=== PATIENT | female | born 1935 | race Caucasian/White ===

== ENCOUNTER 2019-05-23 10:25 | Observation (INO) ==
--- NOTE | 2019-05-23 11:08 | PROVIDER DOCUMENTATION ---
HPI-General Adult - General Chief Complaint: Nausea Stated Complaint: fall yesterday, nausea Time Seen by Provider: 05/23/19 10:56 Source: patient, family () Allergies/Adverse Reactions: Patient Allergies Allergy/AdvReac Type Severity Reaction Status Date / Time moxifloxacin HCl * Allergy Mild RASH Verified 12/27/15 18:14 [From Avelox] Home Medications: Home Medication List Medication Instructions Recorded Confirmed Last Taken Type Levothyroxine [Synthroid] 50 microgm PO DAILY 03/18/15 12/29/16 12/29/16 07:00 History Metoprolol Succinate [Toprol Xl] 50 mg PO DAILY 03/18/15 12/29/16 12/29/16 07:00 History Omeprazole 20 mg PO DAILY #30 capsule. 03/18/15 12/29/16 12/29/16 07:00 Rx Sucralfate [Carafate Liquid] 1 gm PO Q6HR #400 ml 03/18/15 12/29/16 Unknown Rx Acetaminophen [Tylenol] 650 mg PO Q4H PRN PRN #0 tablet 12/31/16 Unknown Rx Amoxicillin/Potassium Clav 1 each PO Q12H #14 tablet 12/31/16 Unknown Rx [Augmentin 875-125 Tablet] - History of Present Illness -Gen Adult Nature of Presenting Problems: Patient is an 83yo F who presents for nausea and weakness. Patient's is at bedside and reports patient slipped and fell yesterday in [facility] and hit her R arm. Reports she was seen by Dr. Aguero yesterday for arm pain who prescribed Tramadol after performing x-rays. Patient reports she has been "not feeling right" since starting the Tramadol. Patient reports she is unsure whether or not she hit her head, and reports he is unsure either as he was not with her. Patient's reports she got up this morning and attempted to go to the bathroom but was really weak and "her feet wouldn't move." Denies vomiting or abdominal pain. Patient's reports she takes a blood thinner, but is unsure of what kind. Upon examination, patient is pale in color and slow to respond to questions. Location of Pain/Injury: reports: upper extremity (R arm) Pain Radiation: reports: no radiation Quality of Pain: reports: aching Severity: reports: mild Onset/Duration: reports: 24 hours ago Timing: reports: still present Context/Activities at Onset: reports: none Modifying Factors: improves with: nothing Associated Symptoms: reports: arm pain, fatigue, genitourinary problems, nausea, weakness, trouble walking. denies: chest pain, cough, shortness of breath Similar Symptoms Previously?: No Recently seen or treated by another doctor?: Yes (saw Dr. Aguero for R arm yesterday) Review of Systems - Adult - REVIEW OF SYSTEMS - ADULT Constitutional: reports: see HPI, chills, fatique. denies: fever Eyes: reports: no symptoms reported Ears, Nose, Mouth & Throat: reports: no symptoms reported Cardiovascular: reports: no symptoms reported. denies: chest pain, palpitations Respiratory: reports: no symptoms reported. denies: cough, shortness of breath Gastrointestinal: reports: see HPI, nausea. denies: abdominal pain Genitourinary: reports: see HPI, hesitency Musculoskeletal: reports: see HPI Integumentary: reports: no symptoms reported Neurological: reports: see HPI Psychiatric: reports: no symptoms reported Endocrine: reports: no symptoms reported Past History - Adult - PAST MEDICAL HISTORY-ADULT Review of Records: reports: Nursing Assessment Review, Medications Reviewed Cardiovascular: reports: cardiac disease Obstetrical/Gynecological: reports: other (breast cancer) Endocrine/Immune: reports: thyroid disorder Other Conditions: reports: cataract/glaucoma - PRIOR SURGERIES/PROCEDURES Surgical/Procedure History: reports: cholecystectomy, hysterectomy, other (cataract, breast bx) - IMMUNIZATION STATUS Childhood Immunizations: See Nurse Assessment Flu Vaccine: See Nurse Assessment - FAMILY HISTORY Family History: reviewed, not pertinent - SOCIAL HISTORY Smoking: non-smoker Physical Exam-General - PHYSICAL EXAM-ADULT Initial Vital Signs Reviewed: Yes - CONSTITUTIONAL General Appearance: mild distress, slow to respond - EYES Eyes: PERRL/EOMI, pink conjunctivae. negative: EOM palsy, scleral icterus - HEAD, EARS, NOSE, MOUTH & THROAT HENMT: normocephalic/atraumatic, moist mucous membranes - NECK Neck: full range of motion, supple, normal inspection - RESPIRATORY Respiratory: chest non-tender, lungs clear, normal breath sounds, no pleuratic chest pain, no respiratory distress, no accessory muscle use. negative: crackles, rales, rhonchi, wheezing, retractions, splinting - CARDIOVASCULAR Cardiovascular: regular rate, rhythm - GASTROINTESTINAL (ABDOMEN) Abdominal Exam: normal bowel sounds, non tender, soft. negative: distended, guarding, rigid, rebound, tenderness - GENITOURINARY Female Genitalia/Pelvic Exam: deferred Rectal Exam: normal exam, normal rectal tone Hemoccult Exam: heme negative stool - MUSCULOSKELETAL Back Exam: normal inspection Extremity: no pedal edema, pelvis stable, tenderness (R shoulder/upper arm) - SKIN Integumentary: warm/dry, ecchymosis (to R posterior shoulder/arm), pallor. negative: cyanosis, jaundice - NEUROLOGIC Neurologic: other (slow to respond to questions). negative: aphasia Progress - PLAN OF CARE/RESULTS Progress/Plan/Lab Results: Vital Signs - 8 hr 05/23/19 10:43 Temperature 97.5 F L Pulse Rate 71 Respiratory Rate 17 Blood Pressure 141/76 O2 Sat by Pulse Oximetry 82 L Orders Category Date Time Status Cardiac Monitoring DIRECTED Care 05/23/19 11:02 Ordered Nursing- Obtain EKG ONCE Care 05/23/19 11:02 Ordered Oxygen Therapy- ED Nursing DIRECTED Care 05/23/19 11:02 Ordered Saline Loc NOW Care 05/23/19 11:[address] HEAD/C-SPINE W/O CONTRAST [CT] Stat Exams 05/23/19 11:02 Ordered CBC WITH ELECTRONIC DIFF [HEME] Stat Lab 05/23/19 11:01 Uncollected CK PROFILE [SP CHEM] Stat Lab 05/23/19 11:01 Uncollected COMPREHENSIVE METABOLIC PANEL [CHEM] Stat Lab 05/23/19 11:01 Uncollected LACTATE, PLASMA [CHEM] Stat Lab 05/23/19 11:01 Uncollected OCCULT BLOOD SCREENING [STOOL] Stat Lab 05/23/19 11:02 Uncollected PRO B-NATRIURETIC PEPTIDE Stat Lab 05/23/19 11:01 Ordered PROTIME WITH INR [COAG] Stat Lab 05/23/19 11:01 Uncollected PTT [COAG] Stat Lab 05/23/19 11:01 Uncollected TROPONIN T Stat Lab 05/23/19 11:02 Uncollected URINALYSIS W/POSS RFLX CULT [URINALYSIS] Stat Lab 05/23/19 11:02 Uncollected URINE DRUG SCREEN Stat Lab 05/23/19 11:02 Uncollected EKG [EKG] Stat Ther 05/23/19 11:01 Ordered After initial examination, at 1056, patient became more alert and answers questions appropriately. In triage, patient satting 82% on RA. Patient placed on 2L and is satting in the mid to high 90s. No respiratory distress noted. Room air trials performed twice in ED, each time patient will drop to 87-88% on RA. Reports she is not experiencing any difficulty breathing or SOB. Dr. Dumont consulted for possible admission. Will come to ED and evaluate patient. Dr. Dumont evaluated patient in ED. Will admit for observation. Result Diagrams: 05/23/19 11:00 05/23/19 11:00 - REASSESSMENT Reassessment #1 Time Reassessed: 11:25 Status: improving (pt became more alert) Reassessment #2 Time Reassessed: 16:25 Reassessment Comment: Dr. Dumont @ bedside - will admit pt for observation - EKG 1 Time of EKG reading by physician:: 11:15 EKG Read and Signed by:: Teri Choe EKG Interpretation (*Must complete 3 of following elements*): Abnormal Rate: 60 Rhythm: NSR [place]: normal QRS: LVH (minimal criteria for, may be normal variant) CA Interval: normal ST Wave: normal - XRAY 1 XRAY: Bilateral XRAY Study: Chest Impression: See EMR Report ([facility] - [address] [place] [address] [address] [address] [facility] - [address] [place] [address] Department of Imaging Patient: ISMAEL BARTHOLOMEW [facility] Date: 05/23/19#: [id number] : 7ADM Status: REG [facility]#: [id number] Age/Sex: 83/FRoom/Bed: Loc: ED Ordering Physician: Reny Alves Family Physician: Jayro Dumont MD Reason for Procedure: Hypoxemia; hx PNA ___ Signed EXAM: CHEST-2 VIEWS HISTORY: Hypoxemia; hx PNA TECHNIQUE: Chest two views COMPARISON: 12/06/2017 FINDINGS: The right hemidiaphragm is elevated similar to the prior exam. Tiny effusions. No change in the right-sided portacatheter. No pneumothorax. Mild cardiomegaly. No infiltrates. IMPRESSION: Stable exam. Electronically signed by Colin Eagle 05/23/2019 12:43 PM 05/23/19 1243 Interpreting Physician: Colin Eagle MD Dictated Date/Time: 05/23/19 1242 cc: Reny Alves; Jayro Dumont MD) - CT/MRI 1 CT Study: Cervical Spine, Head Impression: See EMR Report ([facility] - [address] [facility] [address] [place], [place] [id number] [facility] - [address] [place] [address] Department of Imaging Patient: ISMAEL BARTHOLOMEW [facility] Date: 05/23/19MR#: [id number] : [id number] Status: REG ERAcct#: [id number] Age/Sex: 83/FRoom/Bed: Loc: ED Ordering Physician: Reny Alves Family Physician: Jayro Dumont MD Reason for Procedure: Fall on blood thinners Signed EXAM: CT HEAD/C-SPINE W/O CONTRAST 05/23/2019 HISTORY: Fall on blood thinners TECHNIQUE: This exam was performed using automated exposure control, adjustment of mA or kV according to patient size, and/or use of iterative reconstruction technique. COMMENT: The current examination is compared with the previous study of 04/22/2019. There is patchy periventricular white matter lucency present bilaterally. There is no evidence of mass effect, bleed, or abnormal extra-axial fluid collection. Compared to 04/22/2019 this has not changed. The visualized paranasal sinuses are clear. The calvarium is intact. Cervical spine: There is disc space narrowing at the C4- 5, C5-6 and C6-7 levels. There is severe facet arthropathy bilaterally at the C3-4 level and at C2-3 on the left. There is no evidence of fracture subluxation or prevertebral soft tissue swelling. IMPRESSION: No evidence of acute disease. 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 Electronically signed by Rcahid taylor 05/23/2019 12:42 PM 05/23/19 1242 Interpreting Physician: Rachid Chavez MD Dictated Date/Time: 05/23/19 1239 cc: Reny Alves; Jayro Dumont MD) - CONSULTS/PCP/HOSPITALIST Notification #1 *Consult/PCP/Hospitalist*: MD Tim Time Discussed: 15:43 Reason/Comments: AMS, hypoxemia, anemia Consult Disposition: Will see in ED Departure - Departure Date of Disposition Decision: 05/23/19 Time of Disposition Decision: 16:25 DIAGNOSIS: Hypoxemia, Weakness Altered mental status Qualifiers: Altered mental status type: unspecified Qualified Code(s): R41.82 - Altered mental status, unspecified Anemia Qualifiers: Anemia type: unspecified type Qualified Code(s): D64.9 - Anemia, unspecified Disposition: ADMITTED INPATIENT 09 Certified Medical Emergency: Emergent Condition: Stable Referrals and Follow-Ups: Jayro Dumont MD [Primary Care Provider] - - Critical Care Note This patient required my direct & personal management of CC.: No Attestation - Physician/ CARLY Attestation Patient care was provided by Advanced Practice Provider:: Yes Advanced Practice Provider:: Reny Alves Advanced Practice Provider documentation review:: The Mid-level provider documentation, treatment plan and medical decision making was reviewed by the physician who agrees with all treatment and medical decision making by the MLP. The physician spent face to face time with patient:: No Advanced Practice Provider documentation review:: Supervising physician onsite and consulted in the evaluation and care of this patient. The physician did not have a face to face encounter with the patient.
[2019-05-23 11:15] LABS: BASO# 0.05 X1000 (0.0-0.2); BASO% 0.7 % (0.0-0.8); EOS# 0.09 X1000 (0.0-0.7); EOS% 1.3 % (0.0-10.0); HEMATOCRIT 33.4 % (37.0-47.0); HEMOGLOBIN 10.6 g/dL (12.0-16.0); LYMPH# 0.77 X1000 (1.2-3.4); LYMPH% 10.8 % (20.5-51.1); MCH 28.2 PG (27-31); MCHC 31.7 g/dL (33-37); MCV 88.8 FL (81-99); MONO# 0.69 X1000 (0.11-0.59); MONO% 9.7 % (1.7-9.3); MPV 11.1 FL (7.4-10.4); NEUT# 5.54 X1000 (1.4-6.5); NEUT% 77.5 % (42.2-75.2); PLT 164 X1000 (130-400); RBC 3.76 XMIL (4.2-5.4); RDW 12.4 % (11.5-14.5); WBC 7.14 X1000 (4.8-10.8)
[2019-05-23 11:39] LABS: AGAP 10; ALB/GLOB RATIO 2.2; ALKALINE PHOSPHATASE 63 U/L (32-104); BUN 22 mg/dL (8-22); CALCIUM 9.1 mg/dL (8.8-10.2); CHLORIDE 103 mmol/L (98-107); COSMO 288; CREATININE 0.8 mg/dL (0.5-0.9); ESTIMATED GFR > 60; GLUCOSE 130 mg/dL (70-104); GOT 22 U/L (10-30); GPT 11 U/L (10-36); INR 1.02; POTASSIUM 3.9 mmol/L (3.5-5.1); PROTIME 13.6 Seconds (11.0-16.0); SODIUM 142 mmol/L (136-145); TCO2 29 mmol/L (25-35); TOTAL BILIRUBIN 0.49 mg/dL (0.20-1.00); TOTAL PROTEIN 5.8 g/dL (6.3-8.3)
[2019-05-23 11:40] LABS: PTT 28.4 Seconds (22.3-41.8)
--- NOTE | 2019-05-23 11:48 | EKG Report ---
Test Performed on : 05/23/2019 11:14:07 AM Test Reason : Nausea Blood Pressure : / mmHG Vent. Rate : 060 BPM Atrial Rate : 060 BPM P-R Int : 170 ms QRS Dur : 092 ms QT Int : 468 ms P-R-T Axes : 052 -04 000 degrees QTc Int : 468 ms Normal sinus rhythm. Moderate voltage criteria for LVH, may be normal variant Borderline ECG When compared with ECG of 29-DEC-2016 19:55, Vent. rate has decreased BY 53 BPM Non-specific change in ST segment in Lateral leads Inverted T waves have replaced nonspecific T wave abnormality in Inferior leads Nonspecific T wave abnormality no longer evident in Lateral leads Unconfirmed Result
[2019-05-23 11:59] LABS: CK PROFILE 465 U/L (24-173)
[2019-05-23 12:38] LABS: CK INDEX 0.8 (0.0-2.5); CK-MB 3.89 ng/mL (0.0-5.0)
[2019-05-23 12:39] LABS: URINE SOURCE CATH
--- NOTE | 2019-05-23 12:44 | Diag Imaging Result Doc PS360 ---
EXAM: CT HEAD/C-SPINE W/O CONTRAST 05/23/2019 HISTORY: Fall on blood thinners TECHNIQUE: This exam was performed using automated exposure control, adjustment of mA or kV according to patient size, and/or use of iterative reconstruction technique. COMMENT: The current examination is compared with the previous study of 04/22/2019. There is patchy periventricular white matter lucency present bilaterally. There is no evidence of mass effect, bleed, or abnormal extra-axial fluid collection. Compared to 04/22/2019 this has not changed. The visualized paranasal sinuses are clear. The calvarium is intact. Cervical spine: There is disc space narrowing at the C4-5, C5-6 and C6-7 levels. There is severe facet arthropathy bilaterally at the C3-4 level and at C2-3 on the left. There is no evidence of fracture subluxation or prevertebral soft tissue swelling. IMPRESSION: No evidence of acute disease. 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 Electronically signed by Rachid Chavez 05/23/2019 12:42 PM
--- NOTE | 2019-05-23 12:45 | Diag Imaging Result Doc PS360 ---
EXAM: CHEST-2 VIEWS HISTORY: Hypoxemia; hx PNA TECHNIQUE: Chest two views COMPARISON: 12/06/2017 FINDINGS: The right hemidiaphragm is elevated similar to the prior exam. Tiny effusions. No change in the right-sided portacatheter. No pneumothorax. Mild cardiomegaly. No infiltrates. IMPRESSION: Stable exam. Electronically signed by Colin Eagle 05/23/2019 12:43 PM
[2019-05-23 12:48] LABS: BILIRUBIN URINE NEGATIVE (NEGATIVE); BLOOD URINE NEGATIVE (NEGATIVE); COLOR YELLOW; GLUCOSE URINE NEGATIVE (NEGATIVE); KETONE URINE NEGATIVE (NEGATIVE); LEUKOCYTES URINE NEGATIVE (NEGATIVE); NITRITE URINE NEGATIVE (NEGATIVE); PH URINE 5.5; PROTEIN URINE TRACE mg/dL (NEGATIVE); TURBIDITY URINE CLEAR (CLEAR); UROBILINOGEN URINE NORMAL (NORMAL)
[2019-05-23 12:54] LABS: UR AMPHETAMINES QUAL NONE DETECTED (NONE DETECT); UR BARBITUATES QUAL NONE DETECTED (NONE DETECT); UR BENZODIAZEPIN QUAL NONE DETECTED (NONE DETECT); UR CANNABINOIDS QUAL NONE DETECTED (NONE DETECT); UR COCAINE QUAL NONE DETECTED (NONE DETECT); UR METHADONE QUAL NONE DETECTED (NONE DETECT); UR OPIATES QUAL NONE DETECTED (NONE DETECT); UR OXYCODONE QUAL NONE DETECTED (NONE DETECT); UR PCP QUAL NONE DETECTED (NONE DETECT)
[2019-05-23] MEDS ORDERED: NS 1,000 ML IV ONE (13:11)
[2019-05-23 13:13] LABS: UR EPITHELIAL CELLS <10 /HPF (<10); URINE BACTERIA NEGATIVE /HPF; URINE RBC <10 /HPF (<10); URINE WBC <10 /HPF (<10)
[2019-05-23 13:37] LABS: URINE CASTS NONE SEEN; URINE CRYSTALS NONE SEEN; URINE SMALL ROUND CELLS TRANS PRESENT; URINE YEAST NONE SEEN
[2019-05-23 14:39] LABS: ALLEN TEST YES; BE 7.2 mmoll (-3.0-3.0); BLOOD TYPE ARTERIAL; HCO3-(ACT) 30.5 mmoll (20.0-26.0); O2(CT) 14.5 mL/dL (15.0-23.0); O2HB 95.3 % (95.0-99.0); PO2(98.6) 76 mmHg (60-100); SAMPLE BLOOD; SAO2 98.3 % (95.0-100.0); THB 10.8 g/dL (11.5-17.4); pH(98.6) 7.41 (7.35-7.45)
[2019-05-23 14:41] LABS: PCO2(98.6) 52 mmHg (35-45)
[2019-05-23 14:42] LABS: MODALITY ROOM AIR
[2019-05-23] MEDS ORDERED: PHENERGAN IV PRN (17:44)
[2019-05-23] MEDS ORDERED: SODIUM CHLORIDE 0.9% INJ PRN (17:44)
[2019-05-23] MEDS ORDERED: TYLENOL PO PRN (17:44)
[2019-05-23] MEDS ORDERED: ROCEPHIN 1 GM in NS 50 ML IV SCH (17:44)
[2019-05-23] MEDS ORDERED: CLINDAMYCIN 600 MG/NS 600 MG/50 ML IVPB IV SCH (17:44)
[2019-05-23] MEDS ORDERED: LOVENOX SUBQ SCH (18:00)
[2019-05-23] MEDS: CLINDAMYCIN 600 MG/D5W 600 MG/50 ML IVPB IV SCH (19:48)
[2019-05-23] MEDS: DUONEB (A & A) INH SCH ×2 (20:21→22:12)
[2019-05-23] MEDS: CARAFATE LIQUID PO SCH (23:07)
[2019-05-24] MEDS: CLINDAMYCIN 600 MG/D5W 600 MG/50 ML IVPB IV SCH ×2 (04:32→13:30)
[2019-05-24] MEDS: CARAFATE LIQUID PO SCH ×3 (05:22→13:36)
[2019-05-24 06:18] LABS: HEMATOCRIT 32.8 % (37.0-47.0); HEMOGLOBIN 10.3 g/dL (12.0-16.0); MCH 28.2 PG (27-31); MCHC 31.4 g/dL (33-37); MCV 89.9 FL (81-99); MPV 11.8 FL (7.4-10.4); RBC 3.65 XMIL (4.2-5.4); RDW 12.4 % (11.5-14.5); WBC 4.94 X1000 (4.8-10.8)
[2019-05-24 06:42] LABS: AGAP 8; BUN 21 mg/dL (8-22); CALCIUM 8.7 mg/dL (8.8-10.2); CHLORIDE 104 mmol/L (98-107); COSMO 280; CREATININE 0.8 mg/dL (0.5-0.9); ESTIMATED GFR > 60; GLUCOSE 81 mg/dL (70-104); SODIUM 139 mmol/L (136-145); TCO2 27 mmol/L (25-35)
--- NOTE | 2019-05-24 07:22 | Diag Imaging Result Doc PS360 ---
EXAM: CHEST-PORTABLE INDICATION: cough and hypoxia TECHNIQUE: One view COMPARISON: 05/23/2019 FINDINGS: The right chest port is in stable position. Inspiration is suboptimal similar to the previous study. There is stable metallic staple lines at the right lung base and the left upper lung zone. No new consolidation is identified. Cardiac silhouette is stable. IMPRESSION: Stable chest. Electronically signed by Orlando Sosa 05/24/2019 7:20 AM
[2019-05-24] MEDS: DUONEB (A & A) INH SCH ×3 (07:25→15:39)
[2019-05-24] MEDS ORDERED: TOPROL XL PO SCH (09:00)
[2019-05-24] MEDS ORDERED: SYNTHROID PO SCH (09:00)
[2019-05-24] MEDS ORDERED: PRILOSEC PO SCH (09:00)
[2019-05-24 09:52] LABS: ALLEN TEST YES; BE 4.8 mmoll (-3.0-3.0); BLOOD TYPE ARTERIAL; HCO3-(ACT) 28.5 mmoll (20.0-26.0); METHB 1.2 % (0.0-1.5); O2(CT) 16.8 mL/dL (15.0-23.0); O2HB 91.5 % (95.0-99.0); PO2(98.6) 60 mmHg (60-100); SAMPLE BLOOD; SAO2 95.2 % (95.0-100.0); THB 13.1 g/dL (11.5-17.4); pH(98.6) 7.39 (7.35-7.45)
[2019-05-24 09:54] LABS: MODALITY ROOM AIR
[2019-05-24 09:57] LABS: PCO2(98.6) 51 mmHg (35-45)
--- NOTE | 2019-05-24 09:59 | Diag Imaging Result Doc PS360 ---
SHOULDER-RIGHT, HUMERUS-RIGHT - 05/24/2019 INDICATION: right shoulder pain after fall TECHNIQUE: Right shoulder two views, right humerus two views COMPARISON: None FINDINGS: There is significant superior subluxation of the humeral head which impacts on the undersurface of the acromion. There are severe degenerative irregularity at the humeral head and undersurface of the acromion. This indicates a chronic supraspinatus tendon tear. There is also moderate degeneration of the acromial clavicular joint. There is moderate degeneration of the glenohumeral joint as well. The remainder of the humerus is intact. No fracture or subluxation. There is a right chest port in good position. IMPRESSION: Advanced chronic and degenerative changes. No acute injury. Electronically signed by Sal Traore 05/24/2019 9:57 AM
--- NOTE | 2019-05-24 13:52 | HISTORY AND PHYSICAL ---
HISTORY OF PRESENT ILLNESS: Ms. Nadia Horne is an 83-year-old lady with a history of primary hypothyroidism, essential hypertension, peripheral neuropathy and cerebellar ataxia who is well known to me. She apparently fell and injured her right upper arm and shoulder. She had previously seen Dr. Aguero in the office. X-rays demonstrated no obvious fractures. She was given Ultram on a p.r.n. basis. Upon arrival to the ER, she was complaining of nausea and weakness. She had been taking Tramadol 2 tablets every 6 hours. She did not have any persistent headaches or confusion. They obtained a CT scan of the brain which demonstrated no intracranial abnormalities. There was chronic microvascular disease throughout the brain. She had degenerative disc disease at C4-C5, C5-C6 and C6-C7. They initially placed her on O2 and were never able to wean her off O2 because of falling O2 sats in the 80s. Upon further questioning, she reported that she had had some intermittent dysphagia as well as intermittent episodes of coughing after eating. Her initial chest x-ray was unremarkable. PAST MEDICAL HISTORY: Essential hypertension, primary hypothyroidism, history of breast cancer, history of small cell lung cancer, cerebellar ataxia, peripheral neuropathy. PAST SURGICAL HISTORY: Bilateral cataract excision, cholecystectomy, tonsillectomy and adenoidectomy, lung resection, left total knee, right shoulder surgery. ALLERGIES: Moxifloxacin. FAMILY HISTORY: Her father of complications of prostate cancer at age 59. Her mother is still living. She is 102 years old, and she has vascular dementia, essential hypertension and congestive heart failure. SOCIAL HISTORY: She denies the use of tobacco, alcohol or illicit drugs. She is and lives with her spouse. MEDICATIONS: 1. Carafate Liquid q 6 hours. 2. Omeprazole 20 mg daily. 3. Toprol XL 50 mg daily. 4. Levothyroxine 50 mcg daily. 5. Ultram 50 mg 1-2 tablets q 6 hours p.r.n. pain. PHYSICAL EXAMINATION: GENERAL: This is an elderly, frail, chronically ill-appearing 83-year-old lady in no apparent distress. VITAL SIGNS: Temperature 97.5; pulse 74; respirations 20; blood pressure 147/70. HEENT: Fundi with arteriolar wall thickening. Pupils equal, round and reactive to light. Extraocular eye movements intact. TMs without bullae. NECK: Supple. No masses, JVD or bruits. CV: Regular rate and rhythm. LUNGS: Diffuse end expiratory wheezing with forced expiration. ABDOMEN: Soft, nontender with active bowel sounds. EXTREMITIES: Without edema. SKIN: No palpable purpura. EXTREMITIES: Without edema. NEUROLOGICAL: Gait is ataxic. ASSESSMENT AND PLAN: 1. She had episodes of sats in the 80s and ABG demonstrating mildly elevated pCO2 of 52. She did not have cross gases. I am concerned that she potentially aspirated. I will begin DuoNeb nebulizer treatments q 4 hours, clindamycin 600 mg IV q 8 hours as well as Rocephin 1 gram IV daily. I will recheck a chest x-ray in the morning. There is certainly the possibility that there was suppression of her breathing from overmedication with pain meds. There is no evidence of congestive heart failure. She does not have tachycardia or tachypnea or any findings on exam that would make me concerned about a pulmonary thromboembolus. 2. Hypertension. Her blood pressure is stable. We will continue metoprolol XL 50 mg daily. 3. Hypothyroidism. I will continue levothyroxine 50 mcg daily. Given her clinical presentation and comorbid conditions, I believe that it is reasonable to admit her to the hospital for further evaluation. I anticipate that she will be in the hospital for at least 1 midnight, and I will place her in outpatient status. We will begin Lovenox 40 mg subcu daily for DVT prophylaxis. cc: Lisandra Dumont MD
--- NOTE | 2019-05-24 13:53 | PROGRESS NOTE ---
DATE: 05/24/2019 SUBJECTIVE: Ms. Horne is breathing much more comfortably this morning. She has a minimal cough. I do not appreciate any significant wheezing. Repeat chest x-ray demonstrates clear lung godoy. She is maintaining O2 saturations of 98% to 100% on room air. She continues with persistent right shoulder pain. X-rays demonstrated superior subluxation of the right humerus. She has had previous repair of a torn rotator cuff. No fractures were noted. OBJECTIVE: Vital Signs: She is afebrile. Pulse is 63, respirations 18, and BP 147/70. CV: Regular rate and rhythm. Lungs: Clear. No wheezing with forced expiration. Abdomen: Soft and nontender with active bowel sounds. ASSESSMENT AND PLAN: 1. Hypoxia. I suspect the hypoxia was due to a combination of an aspiration pneumonitis as well as respiratory suppression with overmedication with pain medications. We will continue broad- spectrum antibiotics and nebulizer treatments. 2. Physical debility. We will consult Physical Therapy for evaluation. cc: Lisandra Dumont MD
[2019-05-24 15:48] VITALS: BP 114/53
[2019-05-24] MEDS ORDERED: AUGMENTIN PO SCH (21:00)
== END 2019-05-24 18:35 | disposition home or self-care (01) ==
LOC: SUPCPDRO → ED 10:25 → 4N 10:25
PROVIDERS: ADMIT Internal Medicine; ATTEND Internal Medicine